=== PATIENT | male | born 1935 | race Caucasian/White ===

== ENCOUNTER 2017-01-08 15:15 | Emergency (ER) | payer OTHER, MEDICARE ==
[2017-01-08] MEDS ORDERED: LIDOCAINE 1%/EPINEPHRINE INJ 20 ML VIAL INJ ONE (16:41)
[2017-01-08 17:32] LABS: ABSOLUTE EOSINOPHILS # (AUTO) 0.2 10^3/uL (0.0-0.6); ABSOLUTE MONOCYTES (AUTO) 0.8 10^3/uL (0.1-1.4); ABSOLUTE NEUT (AUTO) 6.3 10^3/uL (1.7-8.2); BASOPHILS % (AUTO) 0.6 % (0-2); EOSINOPHILS % (AUTO) 2.1 % (0-6); HEMATOCRIT 39.1 % (37.9-51.0); HEMOGLOBIN 13.1 g/dL (13.5-17.0); HGB HCT DIFFERENCE 0.2; LYMPHOCYTES % (AUTO) 11.5 % (13-45); MEAN CORPUSCULAR HEMOGLOBIN 30.9 pg (27.0-33.4); MEAN CORPUSCULAR HGB CONC 33.5 g/dL (32.0-36.0); MEAN CORPUSCULAR VOLUME 92 fl (80-97); MONOCYTES % (AUTO) 9.9 % (3-13); RED BLOOD COUNT 4.23 10^6/uL (4.35-5.55); RED CELL DISTRIBUTION WIDTH 13.9 % (11.5-14.0); SEGMENTED NEUTROPHILS % (AUTO) 75.9 % (42-78); WHITE BLOOD COUNT 8.4 10^3/uL (4.0-10.5)
[2017-01-08 17:54] LABS: ALANINE AMINOTRANSFERASE 20 U/L (21-72); ALBUMIN 3.7 g/dL (3.5-5.0); ALKALINE PHOSPHATASE 84 U/L (38-126); ANION GAP 9 (5-19); ASPARTATE AMINO TRANSFERASE 25 U/L (17-59); BILIRUBIN,DIRECT 0.3 mg/dL (0.0-0.4); BILIRUBIN,TOTAL 0.6 mg/dL (0.2-1.3); BLOOD UREA NITROGEN 41 mg/dL (7-20); CALCIUM 9.1 mg/dL (8.4-10.2); CARBON DIOXIDE 30 mmol/L (22-30); CHLORIDE 103 mmol/L (98-107); CREATININE RESULT 1.43 mg/dL (0.52-1.25); GLUCOSE 128 mg/dL (75-110); POTASSIUM 4.6 mmol/L (3.6-5.0); SODIUM 141.8 mmol/L (137-145); TOTAL PROTEIN 6.7 g/dL (6.3-8.2)
--- NOTE | 2017-01-08 20:00 | ER Document Report ---
ED Fall - General Chief Complaint: Fall Injury Stated Complaint: HEAD INJURY Time Seen by Provider: 01/08/17 16:39 Mode of Arrival: Medic Information source: Transfer Record, Emergency Med Personnel Notes: This is an 81-year-old man with a history of dementia and Parkinson's who is brought into the emergency room by EMS after fall at [facility]. Patient was just placed in [facility] for a two-week respite. He normally ambulates with a walker and has an unsteady gait. He was reported that he was not ambulating with a walker and that he had tripped and fallen forward and landed on his head. No reported loss of consciousness. He does have a laceration to his forehead. - HPI Occurred: Just prior to arrival Where: Intermediate Context: Tripped Associated symptoms: Dazed/confused. denies: Lost consciousness Location of injury/pain: Head Quality of pain: No pain Severity: None Pain Level: Denies - Related data Allergies/Adverse Reactions: No Known Allergies Allergy (Verified 01/08/17 15:59) Past Medical History - General Information source: Transfer Record - Social History Smoking Status: Unknown if Ever Smoked Cigarette use (# per day): No Chew tobacco use (# tins/day): No Frequency of alcohol use: None Drug Abuse: None Lives with: Other - Patient lives with was placed in a two-week respite care yesterday at [facility] Family History: None Patient has suicidal ideation: No - Past Medical History Cardiac Medical History: Reports: Hx Hypercholesterolemia Pulmonary Medical History: Reports: None Neurological Medical History: Reports: Other - Dementia with Parkinson's disease Endocrine Medical History: Reports: Hx Diabetes Mellitus Type 2 Past Surgical History: Reports: Hx Appendectomy Review of Systems - Review of Systems Constitutional: denies: Chills, Fever EENT: See HPI Cardiovascular: No symptoms reported Respiratory: No symptoms reported Gastrointestinal: No symptoms reported Genitourinary: No symptoms reported Male Genitourinary: No symptoms reported Musculoskeletal: No symptoms reported Skin: No symptoms reported Hematologic/Lymphatic: No symptoms reported Neurological/Psychological: See HPI Physical Exam - Vital signs Vitals: Temp Pulse Resp BP Pulse Ox 97.6 F 72 18 103/48 L 96 01/08/17 16:05 01/08/17 16:05 01/08/17 16:05 01/08/17 16:05 01/08/17 16:05 Notes: Physical exam: GENERAL: 81-year-old man, alert, dementia: At baseline as per HEAD: Patient does have a 7 cm laceration over the left eyebrow. Cervical spine nontender. EYES: Pupils equal round and reactive to light, extraocular movements intact, sclera anicteric, conjunctiva are normal. ENT: TMs normal, nares patent, oropharynx clear without exudates. Moist mucous membranes. NECK: Normal range of motion, supple without lymphadenopathy or JVD. LUNGS: Breath sounds clear to auscultation bilaterally and equal. No wheezes rales or rhonchi. HEART: Regular rate and rhythm without murmurs, rubs or gallops. ABDOMEN: Soft, normoactive bowel sounds. No tenderness to palpation. No guarding, no rebound. No masses appreciated. EXTREMITIES: Normal range of motion, no pitting or edema. No clubbing or cyanosis. NEUROLOGICAL: Cranial nerves II through XII grossly intact. Normal speech, moving all extremities PSYCH: The patient is at his baseline mental status SKIN: Warm, Dry, normal turgor, no rashes or lesions noted. Course - Re-evaluation Re-evalutation: 01/08/17 19:57 As per : Last tetanus in May. - Vital Signs Vital signs: Temp Pulse Resp BP Pulse Ox 97.6 F 78 18 105/52 L 98 01/08/17 16:05 01/08/17 21:00 01/08/17 21:00 01/08/17 21:00 01/08/17 21:00 - Laboratory Result Diagrams: 01/08/17 17:16 01/08/17 17:16 Laboratory results interpreted by me: 01/08/17 01/08/17 17:16 17:16 RBC 4.23 L Hgb 13.1 L Lymphocytes % 11.5 L BUN 41 H Creatinine 1.43 H Est GFR ( Amer) 57 L Est GFR (Non-Af Amer) 47 L Glucose 128 H ALT 20 L - Diagnostic Test Radiology reviewed: Image reviewed, Reports reviewed - CT of the head and cervical spine show no acute fractures or bleed. Chest x-ray is clear. Pelvis shows no acute injury. Procedures - Laceration/Wound Repair Left Face Time completed: 19:00 Wound length (cm): 7 Wound's Depth, Shape: Irregular, Contused tissue Laceration pre-procedure: Chloraprep applied, Shur-Clens applied Anesthetic type: 1% Lidocaine w/epi Volume Anesthetic (mLs): 5 Wound explored: No foreign body removed Irrigated w/ Saline (mLs): 500 Wound Debrided: Minimal Wound Repaired With: Sutures Suture Size/Type: 6:0, Nylon Number of Sutures: 10 Post-procedure wound care: Sterile dressing applied Post-procedure NV exam normal: Yes Complications: No Discharge - Discharge Clinical Impression: laceration to face, fall, concussion Condition: Stable Disposition: HOME, SELF-CARE Instructions: Facial Laceration ([facility]), Concussion ([facility]) Additional Instructions: Recommendations: Keep the wound dry. Can apply bacitracin once daily to the low abrasions on the right side of the nose and corner of the eye on the left. Turn to the ER Wednesday for wound check. Do not need to uncover bandage until wound check on Wednesday. Turn to the ER for any concerns that Mr. willson is not acting appropriately was having fever (temperature greater than 100.5) The sutures need to come out in one week: Return to the ER for this. Prescriptions: Bacitracin Zinc [Bacitracin Oint 15 gm] 1 applic TP DAILY #1 tube Forms: Follow up (Sutures/Bergoo), Follow-Up (Wound) Referrals: PAVEL ALVAREZ MD [Primary Care Provider] - Follow up as needed
[2017-01-08 21:03] VITALS: BP 105/52
== END 2017-01-08 20:45 | disposition home or self-care (01) ==
LOC: ER 15:15
PROC: 0HQ1XZZ Repair Face Skin, External Approach (ICD-10-PCS; principal; 2017-01-08)
DX: S06.0X9A Concussion with loss of consciousness of unspecified duration, initial encounter (principal); S01.112A Laceration without foreign body of left eyelid and periocular area, initial encounter; W01.0XXA Fall on same level from slipping, tripping and stumbling without subsequent striking against object, initial encounter; Y92.128 Other place in nursing home as the place of occurrence of the external cause; G20 Parkinson's disease; F02.80 Dementia in other diseases classified elsewhere, unspecified severity, without behavioral disturbance, psychotic disturbance, mood disturbance, and anxiety; E11.9 Type 2 diabetes mellitus without complications
CPT/HCPCS: 12014; 99285; 36415; 85025; 80053; 71010; 72170; 70450; 72125; J3490

== ENCOUNTER 2017-01-10 11:29 | Emergency (ER) | payer OTHER, MEDICARE ==
[2017-01-10 11:36] VITALS: BP 102/45
--- NOTE | 2017-01-10 11:43 | ER Document Report ---
ED General - General Chief Complaint: Wound Recheck Stated Complaint: WOUND RECHECK Time Seen by Provider: 01/10/17 11:41 TRAVEL OUTSIDE OF THE [place] IN LAST 30 DAYS: No - HPI Patient complains to provider of: wound check Notes: Patient was seen approximately 2-3 days ago after fall the floor with sutures placed in the left lower forehead. Patient was brought back in today for wound check. Patient also has an abrasion to the left zygomatic arch. No fevers no chills no nausea vomiting no blushing no bleeding of the wounds. Patient currently resides in a local intermediate - Related Data Allergies/Adverse Reactions: No Known Allergies Allergy (Verified 01/08/17 15:59) Past Medical History - Social History Smoking Status: Never Smoker Cigarette use (# per day): No Chew tobacco use (# tins/day): No Frequency of alcohol use: None Drug Abuse: None Family History: None - Past Medical History Cardiac Medical History: Reports: Hx Hypercholesterolemia Endocrine Medical History: Reports: Hx Diabetes Mellitus Type 2 Renal/ Medical History: Denies: Hx Peritoneal Dialysis Past Surgical History: Reports: Hx Appendectomy - Immunizations Hx Diphtheria, Pertussis, Tetanus Vaccination: Yes Review of Systems - Review of Systems Notes: Dementia -: Yes ROS unobtainable due to patient's medical condition Physical Exam - Vital signs Vitals: Temp Pulse Resp BP Pulse Ox 97.4 F 14 L 14 102/45 L 99 01/10/17 11:33 01/10/17 11:33 01/10/17 11:33 01/10/17 11:33 01/10/17 11:33 Interpretation: Normal - General General appearance: Appears well, Alert - HEENT Head: Normocephalic. No: Atraumatic - Patient with small abrasion to the left zygomatic arch with no signs of bleeding or infection. Patient has sutures placed in a laceration above the left forehead thought to be well-healed no signs of infection Eyes: Normal Pupils: PERRL - Respiratory Respiratory status: No respiratory distress Chest status: Nontender Breath sounds: Normal Chest palpation: Normal - Cardiovascular Rhythm: Regular Heart sounds: Normal auscultation Murmur: No - Abdominal Inspection: Normal Distension: No distension Bowel sounds: Normal Tenderness: Nontender Organomegaly: No organomegaly - Back Back: Normal, Nontender - Extremities General upper extremity: Normal inspection, Nontender, Normal color, Normal ROM , Normal temperature General lower extremity: Normal inspection, Nontender, Normal color, Normal ROM , Normal temperature, Normal weight bearing - Neurological Neuro grossly intact: Yes Motor strength normal: LUE, RUE, LLE, RLE Sensory: Normal - Skin Skin Temperature: Warm Skin Moisture: Dry Skin Color: Normal Course - Re-evaluation Re-evalutation: 01/10/17 11:49 Wound looks to be well-healed encouraged to return for suture removal or have the intermediate provider remove sutures. - Vital Signs Vital signs: Temp Pulse Resp BP Pulse Ox 97.4 F 14 L 14 102/45 L 99 01/10/17 11:33 01/10/17 11:33 01/10/17 11:33 01/10/17 11:33 01/10/17 11:33 Discharge - Discharge Clinical Impression: Encounter for wound re-check Condition: Good Additional Instructions: Please have your sutures removed on Wednesday the . Continue with dressing changes. The wound looks very well-healed
== END 2017-01-10 11:45 | disposition home or self-care (01) ==
LOC: ER 11:29
DX: S01.81XD Laceration without foreign body of other part of head, subsequent encounter (principal); W19.XXXD Unspecified fall, subsequent encounter; E11.9 Type 2 diabetes mellitus without complications
CPT/HCPCS: 99282